=== PATIENT | male | born 1980 | race Caucasian/White ===

== ENCOUNTER → 2017-03-31 | Outpatient (CLI) | payer OTHER ==
[~2017-03-31] MED LIST: ACHD5005 PO; LISD20CA PO; MPR22T TOP; SULF1TAB38 PO
--- NOTE | 2017-03-31 11:52 | Diagnostic Imaging Report ---
KNEE, LEFT, 3 VIEWS COMPARISON: None available. INDICATION: Medial knee pain. TECHNIQUE: Non-weight bearing AP, oblique, and lateral views of the left knee. FINDINGS: No fracture or traumatic malalignment. The joint spaces are well maintained. No knee joint effusion. IMPRESSION: Normal left knee radiographs. Dictated by: Dictated on workstation # [id number]
== END ==
LOC: RAD 11:07
PROVIDERS: ATTEND Family Medicine
DX: M25.562 Pain in left knee (principal)
CPT/HCPCS: 73562

== ENCOUNTER → 2017-04-06 | Outpatient (CLI) | payer BC, OTHER ==
--- NOTE | 2017-04-06 14:01 | Diagnostic Imaging Report ---
PROCEDURE: MRI left joint lower extremity without contrast. TECHNIQUE: Multiplanar, multisequence MR imaging of the left knee was performed without contrast. COMPARISON: Left knee radiographs of 03/31/17. INDICATION: Medial knee pain. FINDINGS: MENISCI Medial meniscus: Complex tearing of the posterior horn and body of the medial meniscus. There is free-edge tearing of the posterior root fibers but the peripheral posterior root fibers remain intact. Within the body, there is a horizontal cleavage tear present. No associated parameniscal cyst. The body of the medial meniscus is partially extruded into the gutter. Lateral meniscus: Normal. LIGAMENTS ACL: Intact. PCL: Intact. MCL: Intact. LCL: The lateral collateral ligamentous complex is intact. EXTENSOR MECHANISM The extensor mechanism is intact. CARTILAGE Articular cartilage throughout the knee is well preserved. No osteochondral lesions. BONE Bone marrow edema in the posterior aspect of the lateral tibial plateau has a subchondral curvilinear hypointensity measuring approximately 1 cm in transverse diameter likely representing a nondisplaced subchondral stress fracture. Amorphous bone marrow edema in the anterior aspect of the medial tibial plateau and opposing anterior aspect of the medial femoral condyle are likely due to opposing contusions. SOFT TISSUE: No joint effusion. Small Pineda's cyst. IMPRESSION: 1. Complex tear of the body and posterior horn of the medial meniscus. 2. Subchondral stress fracture in the posterior aspect of the medial tibial plafond. No subchondral collapse of the stress fracture. 3. Kissing bone contusions in the anterior aspect of the medial femoral condyle and opposing tibial plateau. 4. The MCL and ACL remain intact. Dictated by: Dictated on workstation # [id number]
== END ==
LOC: RAD 12:58
PROVIDERS: ATTEND Family Medicine
DX: M84.362A Stress fracture, left tibia, initial encounter for fracture (principal); M23.222 Derangement of posterior horn of medial meniscus due to old tear or injury, left knee
CPT/HCPCS: 73721

== ENCOUNTER 2021-03-09 05:35 | Outpatient (CLI) | payer BC ==
[~2021-03-09] VITALS: Ht 185.5 cm; Wt 88.6 kg
[2021-04-25] MEDS ORDERED: NF-ADXR10C PO (11:43)
== END 2021-04-25 11:44 | disposition home or self-care (01) ==
LOC: PREOP 05:35
PROVIDERS: ATTEND Surgery
DX: Z01.818 Encounter for other preprocedural examination (principal)

== ENCOUNTER 2021-04-28 08:36 | Day surgery (SDC) | payer BC, OTHER ==
--- NOTE | 2021-03-08 15:51 | HISTORY AND PHYSICAL ---
DATE OF SERVICE: ATTENDING PRIMARY CARE PHYSICIAN: Dr. Jonathan Massey. HISTORY: The patient is a 40-year-old male who was referred over to us for a ventral abdominal hernia. He reports that this has been there for several years; however, he has noticed that over the past month that this does pop out more and has started causing him more discomfort. He reports he has not had any abdominal surgeries before. He denies any nausea or vomiting, but does report occasional episodes of diarrhea, but no constipation. 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 He reports that he is usually able to push this back in. PAST MEDICAL HISTORY: None. PAST SURGICAL HISTORY: Vasectomy in 2018, left knee arthroscopy in 2017. ALLERGIES: No known drug allergies. MEDICATIONS: None. SOCIAL HISTORY: Negative for tobacco smoke. Positive for chewing tobacco for 10 years. Social for alcohol. FAMILY HISTORY: Father, diabetes, hypertension. VITAL SIGNS: Blood pressure is 146/80. Current weight is 202 pounds at 6 feet 1 inches. REVIEW OF SYSTEMS: This is a well-nourished male, in no acute distress. He is not experiencing any shortness of breath or difficulty breathing. No chest pain, palpitations or diaphoresis. No nausea or vomiting. He does report intermittent episodes of abdominal pain with the hernia bulging. No significant diarrhea or constipation. No red blood per rectum. No dark tarry stools. No fever or chills. No recent inadvertent weight loss. All other review of systems negative. PHYSICAL EXAMINATION: CHEST: Clear. Good breath sounds bilaterally. HEART: Regular, no murmurs. EXTREMITIES: No lower extremity edema. Negative Homans sign. HEENT: No scleral icterus. NECK: No cervical lymphadenopathy. ABDOMEN: Soft, nondistended. Upon palpation, there is a ventral abdominal hernia of the mid abdomen that is reducible and small; however, this is tender to palpation. SKIN: Warm, dry and pink. NEUROLOGIC: Awake, alert and oriented x3. ASSESSMENT AND PLAN: A 40-year-old male with a symptomatic reducible ventral abdominal hernia. At this time, the risk of incarceration versus strangulation was discussed with the patient. He would like to proceed with surgical intervention; however, due to his occupation would like to wait until he is on winter break and then proceed with surgery. CC: Dr. Jonathan Massey -- requested, unable to deliver. Job ID: [id number] DocumentID: [id number] Dictated Date: 03/01/2021 09:34:28 [place] Miner Date: 03/01/2021 10:28:03 Dictated By: CHIRAG SNOW APRN
--- NOTE | 2021-04-25 14:14 | HISTORY AND PHYSICAL ---
DATE OF SERVICE: DATE OF SERVICE: 01/26/2022. ATTENDING PRIMARY CARE PHYSICIAN: Dr. Jonathan Massey. HISTORY OF PRESENT ILLNESS: The patient is a 40-year-old male who was referred over to us for a ventral abdominal hernia. He reports that this has been there for several years; however, has noticed over the past month, this does pop out more and has had occasional episodes of some discomfort. He reports that he has not had any abdominal surgeries before. He denies any nausea or vomiting, but does report occasional episodes of diarrhea, but no constipation. 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 He reports that he is usually able to push his back in. PAST MEDICAL HISTORY: None. PAST SURGICAL HISTORY: Cystectomy 2018, left knee arthroscopy 2017. ALLERGIES: No known drug allergies. MEDICATIONS: None. HISTORY: Father, diabetes, hypertension. SOCIAL HISTORY: Negative for tobacco smoke. Positive for chewing tobacco for 10 years. Social for alcohol. VITAL SIGNS: Blood pressure 146/80. Current weight is 202.0 pounds at 6 feet 1 inches. REVIEW OF SYSTEMS: This is a well-nourished male in no acute distress. He is not experiencing any shortness of breath or difficulty breathing. No chest pain, palpitations or diaphoresis. No nausea or vomiting. He does report intermittent episodes of abdominal pain with bulging. No diarrhea or constipation. No red blood per rectum. No dark tarry stools. No fever or chills. No recent inadvertent weight loss. All other review of systems negative. PHYSICAL EXAMINATION: CHEST: Clear. Good breath sounds bilaterally. HEART: Regular, no murmurs. EXTREMITIES: No lower extremity edema. Negative Homans sign. HEENT: No scleral icterus. NECK: No cervical lymphadenopathy. ABDOMEN: Soft, nondistended. There is a ventral abdominal hernia of the mid abdomen that is reducible and small; however, tender to palpation. SKIN: Warm, dry and pink. NEUROLOGIC: Awake, alert and oriented x3. ASSESSMENT AND PLAN: A 40-year-old male with a symptomatic reducible ventral abdominal hernia. At this time, it was discussed with the patient about surgical intervention versus conservative management. It was also discussed with him about the risk of incarceration as well as strangulation. He reports that he would like to proceed with surgical intervention; however, due to his occupation wants to proceed with the repair when they are on Winter break, which we will proceed with scheduling his convenience. CC: Dr. Jonathan Massey - requested, unable to deliver. Job ID: [id number] DocumentID: [id number] Dictated Date: 04/25/2021 13:45:12 Inspection Supervisor Date: 04/25/2021 14:13:18 Dictated By: CHIRAG SNOW APRN
[~2021-04-28] VITALS: Ht 185.5 cm; Wt 88.6 kg
[2021-04-28] VITALS (10 sets, daily range): BP systolic 114–140; BP diastolic 56–95
[~2021-04-28 08:36] MED LIST changes: +NF-ADXR10C PO
[2021-04-28] MEDS ORDERED: LIDOCAINE/EPI 1%-1:200,000 (XYLOCAINE) 30 ML VIAL ONE (08:43)
[2021-04-28] MEDS ORDERED: ceFAZolin 2 GM IV Premixed 50 ML IV ONE (09:00)
[2021-04-28] MEDS ORDERED: LACTATED RINGERS 1,000 ML IV PRN (09:00)
[2021-04-28] MEDS ORDERED: proPOfol 200 MG/20 ML (DIPRIVAN) VIAL IV ONE (09:01)
[2021-04-28] MEDS ORDERED: SEVOFLURANE (ULTANE) 15 ML INHAL SOLN ONE ×2 (09:01→11:37)
[2021-04-28] MEDS ORDERED: LIDOCAINE PF 2% 5 ML (XYLOCAINE) VIAL ONE (09:01)
[2021-04-28] MEDS ORDERED: fentaNYL INJ 100 MCG/2 ML AMP ONE (09:02)
[2021-04-28] MEDS ORDERED: MIDAZOLAM 2 MG/2 ML (VERSED) VIAL ONE (09:02)
--- NOTE | 2021-04-28 09:04 | Progress Note-Pre Operative ---
Pre-Operative Progress Note H&P Reviewed The H&P was reviewed, patient examined and no changes noted. Date Seen by Provider: Apr 28, 2021 Time Seen by Provider: 09:00 Date H&P Reviewed: Apr 28, 2021 Time H&P Reviewed: 08:55 Pre-Operative Diagnosis: Symptomatic ventral abdominal hernia CHIRAG SNOW APRN Apr 28, 2021 09:04
[2021-04-28] MEDS ORDERED: HYDR-3817 PO (09:06)
--- NOTE | 2021-04-28 09:06 | Discharge Inst-Surgical ---
D/C Lap Instructions-KIDO Reconcile Patient Problems Problems Reviewed?: Yes New, Converted, or Re-Newed RX: RX on Chart Follow Up Appt in 2 weeks Activity as tolerated No driving for 24 hours No driving while on pain medications Incentive Spirometry use every 2 hours while awake Regular Diet Symptoms to Report: Fever over 101 degree F, Nausea/Vomiting Infection Signs and Symptoms to report: Increased redness, Foul odor of wound, Increased drainage Bathing instructions: May shower Operative Area Clean/Dry; Keep incision clean/dry If any problems/questions: Contact your physician or go to Emergency Room CHIRAG SNOW APRN Apr 28, 2021 09:06
[2021-04-28] MEDS ORDERED: HYDROcodone/APAP 5 MG/325 MG (LORTAB) TAB PO ONE (09:15)
[2021-04-28] MEDS ORDERED: morphine INJ 10 MG/ML 1ML (SYR OR VIAL) IVP PRN (09:15)
[2021-04-28] MEDS ORDERED: ACETAMINOPHEN 325 MG TABLET PO PRN (09:15)
[2021-04-28] MEDS ORDERED: ONDANSETRON 4 MG/2 ML (SDV) Z0FRAN IVP PRN ×2 (09:15→12:00)
[2021-04-28] MEDS ORDERED: ROCURONIUM 50 MG/5 ML (ZEMURON) VIAL IV ONE (11:37)
--- NOTE | 2021-04-28 11:39 | Progress Note-Post Operative ---
Post-Operative Progess Note Surgeon (s)/Computer Science Teacher (s) Surgeon AFUA KAPOOR MD Computer Science Teacher: tucker nowak [employer] Pre-Operative Diagnosis Symptomatic ventral abdominal hernia Post-Operative Diagnosis same Procedure & Operative Findings Date of Procedure 04/28/21 Procedure Performed/Findings reducible ventral abd hernia repair with mesh. Anesthesia Type get Estimated Blood Loss Estimated blood loss (mL): minimal Specimens/Packing Specimens Removed none AFUA KAPOOR MD Apr 28, 2021 11:39
--- NOTE | 2021-04-28 11:50 | Anesthesia-General Post-Op ---
General Patient Condition Mental Status/LOC: Same as Preop Cardiovascular: Satisfactory Nausea/Vomiting: Absent Respiratory: Satisfactory Pain: Controlled Complications: Absent Post Op Complications Complications None Follow Up Care/Instructions Patient Instructions None needed. Anesthesia/Patient Condition Patient Condition Patient is doing well, no complaints, stable vital signs, no apparent adverse anesthesia problems. No complications reported per nursing. MILA AGUILAR CRNA Apr 28, 2021 11:50
[2021-04-28] MEDS ORDERED: MEPERIDINE (DEMEROL) INJ 50 MG/ML IVP ONE (12:00)
[2021-04-28] MEDS ORDERED: fentaNYL INJ 100 MCG/2 ML AMP IVP ONE (12:00)
[2021-04-28] MEDS ORDERED: morphine INJ 10 MG/ML 1ML (SYR OR VIAL) IVP ONE (12:00)
[2021-04-28] MEDS ORDERED: morphine INJ 10 MG/ML 1ML (SYR OR VIAL) ONE (12:07)
--- NOTE | 2021-04-28 12:46 | OPERATIVE REPORT ---
DATE OF SERVICE: 04/28/2021 ATTENDING PRIMARY CARE PHYSICIAN: Dr. Jonathan Massey. PREOPERATIVE DIAGNOSIS: Symptomatic reducible ventral abdominal hernia. POSTOPERATIVE DIAGNOSIS: Symptomatic reducible ventral abdominal hernia with the defect approximately 2 cm in size. PROCEDURE: Ventral abdominal hernia repair with mesh. SURGEON: Mary Kapoor MD FINANCIAL ASSISTANCE ADVISOR: Len Wiley APRN ANESTHESIA: General endotracheal. ESTIMATED BLOOD LOSS: Minimal. FINDINGS: Same as postoperative diagnosis. DISPOSITION: The patient tolerated the procedure well. INDICATIONS: The patient is a 40-year-old male who has had a palpable bulge as well as pain in the supraumbilical region for the past several years, which has increased since last size and become more painful over time as well. He was seen by his primary care physician and referred over to us. He is otherwise eating well and having normal bowel movements. DESCRIPTION OF PROCEDURE: The patient was brought to the operating room, laid supine on the table. After adequate IV pain and sedative medications and general endotracheal intubation, the abdomen was prepped and draped in standard surgical fashion. A 0.5% Marcaine with epinephrine was used to anesthetize overlying skin in the supraumbilical region and a transverse skin incision made using a 15 blade. The subcutaneous tissue was then dissected using electrocautery and the hernia sac identified and completely dissected out using blunt dissection as well as electrocautery until we reached the fascial base. The hernia sac was then opened using Metzenbaum scissors. There was only preperitoneal fat within the hernia sac and the hernia sac was then completely excised using a cautery under direct visualization. The defect was approximately 2 cm in size and a 6.4 coated polypropylene mesh was placed in the defect and sutured transfascially in a concentric manner using interrupted 0 Prolene sutures. Good hemostasis was observed. The subcutaneous tissue was then reapproximated using 3-0 Vicryl interrupted sutures. Skin was closed using 4-0 Monocryl running subcuticular suture. Wound was then cleaned and covered with Dermabond. We then proceeded to place tonsil sponges followed by 4 x 4 gauze followed by a large Op-Site over the hernia site as a pressure dressing. The patient tolerated the procedure well. We will start IV normal pain medication as well as a clear liquid diet. Once he is tolerating clears, has good pain control with oral pain medications, ambulating well, we will discharge him home where he will be instructed to do no heavy lifting or exertion for the next two weeks and slowly incorporate more activity on a gradual stepwise fashion until six weeks from the surgery date. We will also have him remove the pressure dressing in approximately five days. Job ID: [id number] DocumentID: [id number] Dictated Date: 04/28/2021 11:38:05 Dryer Operator Date: 04/28/2021 12:45:59 Dictated By: MARY KAPOOR MD
[2021-04-28] MEDS ORDERED: HYDROcodone/APAP 5 MG/325 MG (LORTAB) TAB ONE (12:52)
== END 2021-04-28 13:40 | disposition home or self-care (01) ==
LOC: SDC 08:36
PROVIDERS: ATTEND Surgery
DX: K46.9 Unspecified abdominal hernia without obstruction or gangrene (principal); K43.9 Ventral hernia without obstruction or gangrene; F90.9 Attention-deficit hyperactivity disorder, unspecified type; F17.220 Nicotine dependence, chewing tobacco, uncomplicated; Z79.899 Other long term (current) drug therapy; Z82.49 Family history of ischemic heart disease and other diseases of the circulatory system; Z83.3 Family history of diabetes mellitus
CPT/HCPCS: 49560; 49568; 87081; C1781

== ENCOUNTER → 2022-06-07 | Outpatient (CLI) | payer BC ==
[~2022-06-07] MED LIST changes: +HYDR-3817 PO
--- NOTE | 2022-06-07 12:08 | Diagnostic Imaging Report ---
PROCEDURE: US right lower extremity venous. TECHNIQUE: Multiple real-time grayscale images were obtained over the right lower extremity in various projections. Additional spectral analysis and color Doppler duplex images were also obtained. INDICATION: Right leg pain COMPARISON: None FINDINGS: The right common femoral vein, femoral vein, deep femoral vein, and popliteal vein are normal in appearance. These vessels show normal compressibility, color flow and doppler augmentation. The visualized deep calf veins demonstrate no distinct intraluminal thrombus. In the subcutaneous fat medial to the knee there appear to be hypoechoic regions with internal echogenicity. On the static images, these appear to have a serpiginous contour and these may represent thrombosed varicose veins. There is no internal blood flow. IMPRESSION: 1. No sonographic evidence of deep venous thrombosis in the right lower extremity. 2. Findings suggestive of thrombosed superficial varicose veins at the medial right leg. Dictated by: Dictated on workstation # [id number]
== END ==
LOC: RAD 10:15
PROVIDERS: ATTEND Family Medicine
DX: M79.604 Pain in right leg (principal)